=== PATIENT | male | born 1950 | race Caucasian/White ===

== ENCOUNTER 2021-03-26 11:17 | Day surgery (SDC) | payer OTHER ==
[~2021-03-26] VITALS: Ht 175.3 cm; Wt 75.0 kg
[2021-03-26] MEDS ORDERED: SODIUM CHLORIDE 0.9% 1,000 ML IV SCH (13:00)
[2021-03-26 13:04] VITALS: BP 135/81
[2021-03-26] MEDS ORDERED: SIMV40TA20 PO (13:09)
[2021-03-26] MEDS ORDERED: APIX5TAB PO (13:09)
[2021-03-26] MEDS ORDERED: ACET-76 PO (13:09)
[2021-03-26] MEDS ORDERED: METO25TA91 PO (13:09)
[2021-03-26 13:20] LABS: BASOPHILS % (AUTO) 1 % (0-1); EOSINOPHILS % (AUTO) 1 % (1-7); LYMPHOCYTES % (AUTO) 19 % (22-44); MEAN CORPUSCULAR HEMOGLOBIN 34.7 pg (27.5-34.5); MEAN CORPUSCULAR HGB CONC 34.3 g/dL (33.2-36.2); MEAN PLATELET VOLUME 9.9 fL (7.4-10.4); MONOCYTES % (AUTO) 6 % (2-9); NEUTROPHILS % (AUTO) 72 % (42-75); PLATELET COUNT 176 x10^3/uL (130-400); RED CELL DISTRIBUTION WIDTH 12.9 % (9.4-14.8)
[2021-03-26] MEDS ORDERED: MIDAZOLAM 1 MG/ML, 2ML ONE (13:52)
[2021-03-26] MEDS ORDERED: VERAPAMIL 2.5 MG/ML, 2ML ONE (13:52)
[2021-03-26] MEDS ORDERED: FENTANYL PF 100 MCG/2ML ONE (13:52)
[2021-03-26] MEDS ORDERED: LIDOCAINE-MPF 1%, 5ML ONE (13:52)
[2021-03-26] MEDS ORDERED: HEPARIN 1,000 UNITS/ML, 10ML ONE (13:53)
[2021-03-26 14:08] LABS: ANION GAP 5 mmol/L (5-15); CALCIUM 8.6 mg/dL (8.5-10.1); CHLORIDE 112 mmol/L (98-107); CREATININE 0.93 mg/dL (0.7-1.3)
[2021-03-26] MEDS ORDERED: LIDOCAINE 2%, 20ML ONE (15:23)
== END 2021-03-26 17:26 | disposition home or self-care (01) ==
LOC: CACL 11:17
PROVIDERS: ATTEND Internal Medicine Cardiovascular Disease
DX: Z01.810 Encounter for preprocedural cardiovascular examination (principal); I08.3 Combined rheumatic disorders of mitral, aortic and tricuspid valves; I25.10 Atherosclerotic heart disease of native coronary artery without angina pectoris; I48.91 Unspecified atrial fibrillation; I10 Essential (primary) hypertension; E78.5 Hyperlipidemia, unspecified; Z20.822 Contact with and (suspected) exposure to COVID-19; Z79.01 Long term (current) use of anticoagulants; Z79.82 Long term (current) use of aspirin; Z79.899 Other long term (current) drug therapy
CPT/HCPCS: 36415; 80048; 85025; 87635; 93312; 93321; 93325; 93460; 99156; C1769; C1894; J1644; J2250; J3010; Q9967